=== PATIENT | male | born 1960 | race Caucasian/White ===

== ENCOUNTER 2022-09-29 13:52 | Outpatient (AMB) | payer OTHER, SELFPAY ==
--- NOTE | 2022-09-29 13:57 | MHC.PC.OV ---
Vital Signs 09/29/22 14:00 Height 5 ft 9 in Weight 206 lb 2 oz BMI 30.4 BP 122/72 Blood Pressure Location Lt brachial Position Sitting Pulse 75 Pulse Source Pulse Oximeter Pulse Oximetry (%) 98 Oxygen Delivery Method Room Air Intake Visit Reasons: Requesting PE Intake Note: Patient is a new patient here to establish care for physical. Transferring care from Dr Escobedo. Medical records have not been requested and have received. Registered Sales Assistant Required: No Gray Tender: Not Required per policy Accompanied by: Self / Same As Patient Allergies No Known Allergies Allergy (Verified 09/29/22 14:04) Tobacco use date assessed: 09/29/22 Dental Screening Dental Screen Date: 09/29/22 Did you have a dental visit in the last 12 months?: Yes Did you have a dental problem in the last 6 months where you did not have access to dental care?: No Was dental information given to patient?: Patient has dentist HPI HPI Comments History of Present Illness Details 62-year-old male new patient denies significant medical or surgical history. Previous patient of last seen 6 years ago. Patient denies any acute concerns. Denies chest pain, palpitations, shortness of breath and syncope. Colonscopy: 2014; showed hyperplastic polyp recommended follow-up in 10 years eye exam: recommended 3 couple years patient advised to call and make an appointment for an eye exam with early interventionist. Patient up-to-date on recommended immunizations except Td due, TD given in office today. [facility] Medical History (Updated 09/29/22 @ 14:11 by ZACHERY Levy) Dislocation of right shoulder joint Seasonal allergies Surgical History No pertinent past surgical history Family History (Updated 09/29/22 @ 14:13 by ZACHERY Levy) Mother Parkinson disease Father Heart disease Pacemaker Skin cancer Brother Type 1 diabetes Social History (Updated 09/29/22 @ 14:13 by ZACHERY Levy) Housing: House Alcohol intake: current Alcohol intake frequency: a few times a week Alcohol type: beer and wine Patient Tobacco Use Status: Never used Tobacco e-Cigarette/Vaping Use: Never Used Second Hand Smoke Exposure: No service: No Current occupational status: retired Cognitive needs: No Hearing needs: No Vision needs: Yes (reading glasses) Questionnaire PHQ-9 Over the last 2 weeks, how often have you been bothered by any of the following problems? 1. Little interest or pleasure in doing things: not at all 2. Feeling down, depressed, or hopeless: not at all 3. Trouble falling or staying asleep, or sleeping too much: not at all 4. Feeling tired or having little energy: not at all 5. Poor appetite or overeating: not at all 6. Feeling bad about yourself - or that you are a failure or have let yourself or your family down: not at all 7. Trouble concentrating on things, such as reading the newspaper or watching television: not at all 8. Moving or speaking so slowly that other people could have noticed. Or the opposite - being so fidgety or restless that you have been moving around a lot more than usual: not at all 9. Thoughts that you would be better off or of hurting yourself in some way: not at all Total score: 0 Depression Screening Interpretation: Negative 54637 - PHQ-9 Billing: Yes Source: Developed by Drs. Andrea Cordoba, Saida Dillon, Chalino Pickering and colleagues, with an educational halle from [employer]. Thrive Questionnaire Date Thrive assessed: 09/29/22 I am a: Patient What is your living situation today?: I have a steady place to live Within the past 12 months, did the food you bought not last and you didn't have the money to get more?: Never true Within the past 12 months, did you worry whether your food would run out before you got money to buy more?: Never true Do you have trouble paying for medicines?: No Do you have trouble getting transportation to medical appointments?: No Do you have trouble paying your heating and electricity bill?: No Do you have trouble taking care of your child, family member or friend?: No Do you have trouble with day-to-day activities such as bathing, preparing meals, shopping, managing finances, etc.?: No Are you currently unemployed and looking for a job?: No Are you interested in more education?: No Currently or been in a relationship where the following occur: no concerns reported AUDIT C Alcohol Use Questionnaire (AUDIT-C) 1. How often do you have a drink containing alcohol?: 2-3 times a week 2. How many drinks containing alcohol do you have on a typical day when you are drinking?: 1 or 2 Total Score: 3 MIGUEL A-7 AMB Questionnaire MIGUEL A-7 Date MIGUEL A - 7 assessed: 09/29/22 Feeling nervous, anxious, or on edge: 0 = Not at all Not being able to stop or control worryin = Not at all Worrying too much about different things: 0 = Not at all Trouble relaxin = Not at all Being so restless that it is hard to sit still: 0 = Not at all Becoming easily annoyed or irritable: 0 = Not at all Feeling afraid as if something awful might happen: 0 = Not at all Total MIGUEL A-7 score (0-4 normal; 5-9 mild; 10-14 moderate; 15-21 severe): 0 Source: Developed by Drs. Andrea Cordoba, Saida Dillon, Chalino Pickering and colleagues, with an educational halle from [employer]. MIGUEL A-7 Assessment Billing MIGUEL A-7 Assessment Tool: MIGUEL A-7 Assessment [id number] Review of Systems Const Denies chills, Denies fatigue, Denies fever(s) and Denies poor appetite Eyes Denies no additional complaints ENT Reports Normal hearing present Card Denies chest pain, Denies syncope, Denies rapid heart rate and Denies dyspnea Resp Denies cough and Denies dyspnea GI Denies change in stool character, Denies constipation, Denies diarrhea, Denies nausea and Denies vomiting Denies dysuria, Denies urinary frequency and Denies urinary urgency Neuro Reports Normal hearing present, Denies confusion and Denies syncope Psych Denies confusion Endo Denies fatigue Physical exam (Primary Care) Vital Signs: Last Vital Signs Pulse 75 09/29/22 14:00 BP 122/72 09/29/22 14:00 Pulse Ox 98 09/29/22 14:00 Oxygen Delivery Method Room Air 09/29/22 14:00 BMI result Body Mass Index 30.4 Tobacco/Smoking Status: Tobacco use Status Tobacco use date assessed 09/29/22 09/29/22 14:05 Patient Tobacco Use Status Never used Tobacco 09/29/22 14:13 e-Cigarette/Vaping Use Never Used 09/29/22 14:13 PHQ-9: PHQ-9 Score PHQ-9: Total score 0 09/29/22 15:45 Depression Screening Interpretation: Negative Thrive Assessment: Date of Thrive Assessment Date Thrive assessed 09/29/22 09/29/22 13:59 Currently or been in a relationship where the following occur: no concerns reported Const General: No confusion Orientation/consciousness: No confusion HENMT Head: Yes normocephalic and Yes atraumatic Ears: external ears normal and TM's normal bilaterally General nose exam: Normal external nose present and Normal nasal mucous membranes and turbinates present Face and sinus: Yes normal facial exam and Yes sinuses nontender Mouth: moist mucous membranes Throat: Yes tonsils normal Eyes Conjunctivae: conjunctivae normal Sclerae: sclerae normal Pupils: Equal, round and reactive pupils present and Pupils normal by confrontation EOM: EOMs intact bilaterally Direct Ophthalmoscopy: normal light reflex Neck Neck: Yes no lymphadenopathy and Yes supple Thyroid: Thyroid normal Chest Chest palpation & inspection: normal inspection of the chest Resp Effort & Inspection: normal respiratory effort Auscultation: clear to auscultation bilaterally, no crackles, no rhonchi and no wheezes Cardio Rate: regular rate Rhythm: regular rhythm Peripheral pulses: radial pulses present and dorsalis pedis present GI Inspection: Yes normal to inspection Palpation (GI): Soft to palpation, nontender and No hepatosplenomegaly present Auscultation: normoactive bowel sounds Skin General skin exam: no rashes or lesions noted Neuro General: No confusion Cranial nerves: Yes Equal, round and reactive pupils present and Yes Normal hearing present Cognition (Neuro): normal cognition Gait exam (Neuro): Normal gait present Motor exam (neuro): 5/5 motor strength present throughout Deep tendon reflexes (DTR's): Right brachioradialis reflex intensity grade: 2+, Left brachioradialis reflex intensity grade: 2+, Right patellar reflex intensity grade: 2+ and Left patellar reflex intensity grade: 2+ Extrem General: No edema Immunizations tetanus-diphtheria toxoids-Td Performing Provider: ZACHERY Levy Administered by: SHERRY Cramer on 09/29/22 14:22 Dose Route Admin Location Lot Number Expiration Date NDC [employer] Attendant 0.5 mL IM Left Deltoid [id number] 07/05/23 [address]-2 [employer] VIS Given Date VIS Provided VIS Publication Date 09/29/22 Single Vaccine 20 Eligibility Eligibility Date Funding Source Not [facility] Eligible 09/29/22 State funds Assessment and Plan Assessment & Plan (1) Physical exam, annual: Code(s): Z00.00 - Encounter for general adult medical examination without abnormal findings Plan: Follow-up in 1 year for annual exam. Fasting blood work ordered. Plan Follow-up in 1 year. Orders: Orders Comprehensive [place]. Panel Fast Today Z13.1 - Encounter for screening for diabetes mellitus Lipid Panel Today Z13.220 - Encounter for screening for lipoid disorders PSA,Total (Free>4and<10) Today Z12.5 - Encounter for screening for malignant neoplasm of prostate TSH reflex Free T4 Today Z13.29 - Encounter for screening for other suspected endocrine disorder Complete Blood Count Auto Diff Today Z13.0 - Encounter for screening for diseases of the blood and blood-forming organs and certain disorders involving the immune mechanism Td State Immunization Today Z23 - Encounter for immunization Coding Level of Care Code New Pt Prev Care 40-64y(33923) Diagnoses Physical exam, annual Z00.00 Additional Codes MIGUEL A-7 Assessment Billing - MIGUEL A-7 Assessment Tool: MIGUEL A-7 Assessment 17046 ([id number])
[2022-09-29 14:00] VITALS: BP 122/72; PULSE 75; O2SAT 98; BMI 30.4
== END 2022-09-29 14:34 | disposition home or self-care (01) ==
PROVIDERS: PCP Internal Medicine; Visit Provider Nurse Practitioner Family
DX: Z23 Encounter for immunization (principal); Z00.00 Encounter for general adult medical examination without abnormal findings
CPT/HCPCS: 90471; 90714; 99386

== ENCOUNTER 2023-10-15 12:24 | Outpatient (AMB) | payer OTHER, SELFPAY ==
[2023-10-15 12:32] VITALS: BP 158/90; PULSE 69; O2SAT 97; BMI 31.3
--- NOTE | 2023-10-15 12:32 | A.OFFPC_ITS ---
Vital Signs 10/15/23 12:32 Height 5 ft 9 in Weight 212 lb 0.4 oz BMI 31.3 BP 158/90 H Blood Pressure Location Lt brachial Position Sitting Pulse 69 Pulse Source Pulse Oximeter Pulse Oximetry (%) 97 Oxygen Delivery Method Room Air Intake Visit Reasons: PE Poured Pipe Maker Required: No Allergies No Known Allergies Allergy (Verified 10/15/23 12:32) Medication List - Last Reconciled 10/15/23 by Carolina Escobedo MD ibuprofen 400 mg PO Q8H multivitamin 1 tab PO DAILY Tobacco use date assessed: 10/15/23 Dental Screening Dental Screen Date: 10/15/23 Did you have a dental visit in the last 12 months?: Yes Did you have a dental problem in the last 6 months where you did not have access to dental care?: No Was dental information given to patient?: Patient has dentist HPI PE HPI Details 63-year-old obese male Coming in for phy sical exam. [facility] Medical History (Updated 10/15/23 @ 12:50 by Carolina Escobedo MD) Shoulder dislocation Dislocation of right shoulder joint Seasonal allergies Surgical History No pertinent past surgical history Family History (Updated 09/29/22 @ 14:13 by ZACHERY Levy) Mother Parkinson disease Father Heart disease Pacemaker Skin cancer Brother Type 1 diabetes Social History (Updated 10/15/23 @ 12:51 by Carolina Escobedo MD) Housing: House Alcohol intake: current Alcohol intake frequency: a few times a week Alcohol type: beer and wine Comment: 2 days weekend 2 drinks Patient Tobacco Use Status: Never used Tobacco e-Cigarette/Vaping Use: Never Used Second Hand Smoke Exposure: No service: No Current occupational status: retired Cognitive needs: No Hearing needs: No Vision needs: Yes (reading glasses) Questionnaire PHQ-9 Over the last 2 weeks, how often have you been bothered by any of the following problems? 1. Little interest or pleasure in doing things: not at all 2. Feeling down, depressed, or hopeless: not at all 3. Trouble falling or staying asleep, or sleeping too much: not at all 4. Feeling tired or having little energy: not at all 5. Poor appetite or overeating: not at all 6. Feeling bad about yourself - or that you are a failure or have let yourself or your family down: not at all 7. Trouble concentrating on things, such as reading the newspaper or watching television: not at all 8. Moving or speaking so slowly that other people could have noticed. Or the opposite - being so fidgety or restless that you have been moving around a lot more than usual: not at all 9. Thoughts that you would be better off or of hurting yourself in some way: not at all Total score: 0 Depression Screening Interpretation: Negative Depression Screening Done: Yes 96713 - PHQ-9 Billing: Yes Source: Developed by Drs. Andrea Cordoba, Saida Dillon, Chalino Pickering and colleagues, with an educational halle from [employer]. Thrive Questionnaire Date Thrive assessed: 10/15/23 I am a: Patient What is your living situation today?: I have a steady place to live Within the past 12 months, did the food you bought not last and you didn't have the money to get more?: Never true Within the past 12 months, did you worry whether your food would run out before you got money to buy more?: Never true Do you have trouble paying for medicines?: No Do you have trouble getting transportation to medical appointments?: No Do you have trouble paying your heating and electricity bill?: No Do you have trouble taking care of your child, family member or friend?: No Do you have trouble with day-to-day activities such as bathing, preparing meals, shopping, managing finances, etc.?: No Are you currently unemployed and looking for a job?: No Are you interested in more education?: No Please select the resources that you would like help with: None Currently or been in a relationship where the following occur: No concerns reported THRIVE Score: 0 AUDIT C Alcohol Use Questionnaire (AUDIT-C) 1. How often do you have a drink containing alcohol?: 2-3 times a week 2. How many drinks containing alcohol do you have on a typical day when you are drinking?: 1 or 2 3. How often do you have six or more drinks on one occasion?: Never Total Score: 3 MIGUEL A-7 AMB Questionnaire MIGUEL A-7 Date MIGUEL A - 7 assessed: 10/15/23 Feeling nervous, anxious, or on edge: 0 = Not at all Not being able to stop or control worryin = Not at all Worrying too much about different things: 0 = Not at all Trouble relaxin = Not at all Being so restless that it is hard to sit still: 0 = Not at all Becoming easily annoyed or irritable: 0 = Not at all Feeling afraid as if something awful might happen: 0 = Not at all Total MIGUEL A-7 score (0-4 normal; 5-9 mild; 10-14 moderate; 15-21 severe): 0 Source: Developed by Drs. Andrea Cordoba, Saida Dillon, Chalino Pickering and colleagues, with an educational halle from [employer]. MIGUEL A-7 Assessment Billing MIGUEL A-7 Assessment Tool: MIGUEL A-7 Assessment 54646 Review of Systems Const Denies poor appetite and Denies weakness Eyes Denies no additional complaints ENT Reports Normal hearing present, Denies dizziness, Denies nasal congestion, Denies tinnitus and Denies sore throat Card Denies chest pain, Denies syncope, Denies rapid heart rate and Denies dyspnea Resp Denies cough and Denies dyspnea GI Denies change in stool character, Reports constipation, Denies diarrhea, Denies nausea and Denies vomiting Denies dysuria and Denies urinary frequency Neuro Reports Normal hearing present, Denies confusion, Denies dizziness, Denies syncope and Denies weakness Psych Denies confusion Physical exam (Primary Care) Vital Signs: Oxygen Delivery Method Room Air 10/15/23 12:32 BMI result Body Mass Index 31.3 Tobacco/Smoking Status: Tobacco use Status Tobacco use date assessed 09/29/22 09/29/22 14:05 Patient Tobacco Use Status Never used Tobacco 09/29/22 14:13 e-Cigarette/Vaping Use Never Used 09/29/22 14:13 Depression Screening Interpretation: Negative Thrive Assessment: Date of Thrive Assessment Date Thrive assessed 09/29/22 09/29/22 13:59 Currently or been in a relationship where the following occur: No concerns reported Const General: No confusion Orientation/consciousness: No confusion HENMT Head: Yes normocephalic Ears: external ears normal and TM's normal bilaterally Face and sinus: Yes normal facial exam Mouth: moist mucous membranes Throat: Yes tonsils normal Eyes Conjunctivae: conjunctivae normal Pupils: Equal, round and reactive pupils present and Pupil accommodation reflex normal Direct Ophthalmoscopy: normal light reflex Neck Neck: No lymphadenopathy Thyroid: Thyroid normal Chest Chest palpation & inspection: normal inspection of the chest Resp Effort & Inspection: normal respiratory effort and no audible wheezes Auscultation: clear to auscultation bilaterally, no crackles, no wheezes and lung sounds not diminished Cardio Rate: regular rate Rhythm: regular rhythm Peripheral pulses: radial pulses present and dorsalis pedis present GI Other: Declined rectal Palpation (GI): no masses Auscultation: normal bowel sounds and normoactive bowel sounds Rectal Exam - Male: Yes deferred Male General Exam: Yes normal external exam Skin General skin exam: no rashes or lesions noted Rashes: no rashes Neuro General: No confusion Cranial nerves: Yes Equal, round and reactive pupils present and Yes Normal hearing present Cognition (Neuro): normal cognition Gait exam (Neuro): Normal gait present Motor exam (neuro): 5/5 motor strength present throughout Deep tendon reflexes (DTR's): Right brachioradialis reflex intensity grade: 2+, Left brachioradialis reflex intensity grade: 2+, Right patellar reflex intensity grade: 2+ and Left patellar reflex intensity grade: 2+ Extrem General: No edema Assessment and Plan Assessment & Plan (1) Annual physical exam: Code(s): Z00.00 - Encounter for general adult medical examination without abnormal findings Plan: Patient is advised to eat healthy, keep well hydrated, keep active and have adequate sleep. (2) Obesity (BMI 30-39.9): Code(s): E66.9 - Obesity, unspecified Plan: Diet and exercise (3) Gallbladder polyp: Comment: Two thousand fifteen 5 mm Code(s): K82.4 - Cholesterolosis of gallbladder (4) Blood pressure elevated without history of HTN: Code(s): R03.0 - Elevated blood-pressure reading, without diagnosis of hypertension Plan: monitor the BP and record. Orders: Orders US abdomen complete Today K82.4 - Cholesterolosis of gallbladder, R79.89 - Other specified abnormal findings of blood chemistry Prostate Specific Antigen Scr Today R03.0 - Elevated blood-pressure reading, without diagnosis of hypertension UA w Microscopic Today R03.0 - Elevated blood-pressure reading, without diagnosis of hypertension Complete Blood Count Auto Diff Today R03.0 - Elevated blood-pressure reading, without diagnosis of hypertension Comprehensive Met. Panel Today R03.0 - Elevated blood-pressure reading, without diagnosis of hypertension Free T4 (Free Thyroxine) Today R03.0 - Elevated blood-pressure reading, without diagnosis of hypertension Vitamin B12 and Folate Today R03.0 - Elevated blood-pressure reading, without diagnosis of hypertension Thyroid Stimulating Hormone Today R03.0 - Elevated blood-pressure reading, without diagnosis of hypertension Lipid Panel Today E78.00 - Pure hypercholesterolemia, unspecified, R03.0 - Elevated blood-pressure reading, without diagnosis of hypertension Coding Level of Care Code Est Pt Prev Care 40-64y(59750) Diagnoses Annual physical exam Z00.00 Obesity (BMI 30-39.9) E66.9 Gallbladder polyp K82.4 Blood pressure elevated without history of HTN R03.0 Additional Codes MIGUEL A-7 Assessment Billing - MIGUEL A-7 Assessment Tool: MIGUEL A-7 Assessment [id number] ([id number])
== END 2023-10-15 13:06 | disposition home or self-care (01) ==
PROVIDERS: PCP Internal Medicine; Visit Provider Internal Medicine
DX: Z00.00 Encounter for general adult medical examination without abnormal findings (principal); E66.9 Obesity, unspecified; K82.4 Cholesterolosis of gallbladder; Z68.31 Body mass index [BMI] 31.0-31.9, adult; R03.0 Elevated blood-pressure reading, without diagnosis of hypertension
CPT/HCPCS: 99396

== ENCOUNTER 2023-10-26 08:00 | Outpatient (REF) | payer OTHER, SELFPAY ==
[2023-10-26 10:26] LABS: MANUAL DIFF FLAG NO
[2023-10-26 10:41] LABS: Basophils Percent Auto 0.6 % (0-2); Eosinophils Absolute Auto 0.1 X10*3/uL (0.0-0.4); Eosinophils Percent Auto 2.6 % (0-4); Hematocrit 46.4 % (42.0-52.0); Hemoglobin 16.1 g/dl (14.0-18.0); Imm Gran Abs Auto 0.01 X10*3/uL (0.00-0.03); Imm Gran Pct Auto 0.2 % (0.0-0.4); Lymphocytes Absolute Auto 1.9 X10*3/uL (1.2-4.9); Lymphocytes Percent Auto 40.4 % (20-40); Mean Corpuscular HGB Conc 34.7 g/dl (31.0-36.0); Mean Corpuscular Hemoglobin 31.5 pg (27.0-33.0); Mean Corpuscular Volume 90.8 fL (80.0-98.0); Mean Platelet Volume 9.8 fL (9.4-12.4); Monocytes Absolute Auto 0.5 X10*3/uL (0.1-1.2); Neutrophils Absolute Auto 2.1 x10*3/uL (2.0-8.3); Neutrophils Percent Auto 45.2 % (45-73); Platelet Count 168 X10*3/uL (160-400); Red Blood Count 5.11 X10*6/uL (4.60-5.80); Red Cell Distribution Width 12.1 % (11.0-16.0); White Blood Count 4.6 X10*3/uL (4.8-10.8)
[2023-10-26 10:53] LABS: Appearance Urine Turbid; Color Urine Yellow; Glucose Urine UA Negative (Negative); Leukocyte Esterase Urine Negative (Negative); Nitrite Urine Negative (Negative); PH 5.5 (5.0-9.0); Specific Gravity - Urine 1.025 (1.005-1.025); Urine Blood Negative (Negative); Urine Ketones Negative (Negative); Urine Protein Negative (Neg-Trace)
[2023-10-26 10:58] LABS: Bacteria Urine None Seen (None Seen); Hyaline Casts Urine 0-2 /LPF (0-2); RBC Urine 0-2 /HPF (0-2); Squamous Epithelial Cell Urine 0-2 /HPF (0-2); WBC Urine 0-5 /HPF (0-5)
[2023-10-26 11:03] LABS: Alanine Aminotransferase 48 U/L (0-40); Albumin Level 4.4 g/dL (3.5-5.0); Alkaline Phosphatase 59 U/L (39-117); Anion Gap 8 (12-20); Aspartate Amino Transferase 30 U/L (5-37); Bilirubin Total 0.8 mg/dL (0.0-1.0); Blood Urea Nitrogen 18 mg/dL (9-16); Calcium 9.2 mg/dL (8.4-10.2); Carbon Dioxide 30 mmol/L (22-29); Chloride 107 mmol/L (96-108); Cholesterol 186 mg/dL (<200); Estimated Glomerular Filt Rate > 60; Glucose Random 102 mg/dL (60-115); HDL Cholesterol 52 mg/dL (>40); LDL Cholesterol Calculated 116 mg/dL (<100); Potassium 4.2 mmol/L (3.3-5.1); Sodium 141 mmol/L (135-145); Total Protein 7.1 g/dL (6.5-8.0); Triglycerides 90 mg/dL (<150)
[2023-10-26 11:22] LABS: Folate 9.5 ng/mL (> or = 4.0); Prostate Specific Antigen Scr 0.98 ng/mL (<0.05-4.0); Vitamin B12 621 pg/mL (200-900)
[2023-10-26 11:26] LABS: Free T4 (Free Thyroxine) 0.93 ng/dL (0.71-1.85); Thyroid Stimulating Hormone 1.32 uIU/mL (0.32-4.0)
== END 2023-10-26 08:01 | disposition home or self-care (01) ==
LOC: HO.HMGCLDS 08:00
PROVIDERS: PCP Internal Medicine; Visit Provider Internal Medicine
DX: R03.0 Elevated blood-pressure reading, without diagnosis of hypertension (principal); E78.00 Pure hypercholesterolemia, unspecified
CPT/HCPCS: 36415; 80053; 80061; 81001; 82607; 82746; 84153; 84439; 84443; 85025

== ENCOUNTER 2023-10-28 07:55 | Outpatient (REF) | payer OTHER, SELFPAY ==
--- NOTE | ~2023-10-28 | US_ITS ---
EXAMINATION: US ABDOMEN COMPLETE CLINICAL INFORMATION: Abnormal labs. COMPARISON: 06/11/2014 ultrasound abdomen. TECHNIQUE: Real-time imaging of the abdominal viscera. Limited visualization due to bowel gas. FINDINGS: PANCREAS: Limited visualization of pancreatic tail and head. Imaged portion of pancreatic body is unremarkable. ABDOMINAL AORTA: Limited visualization. INFERIOR VENA CAVA: Visualized portions are normal. LIVER: Increased hepatic parenchymal heterogeneity and echogenicity could be associated with hepatocellular disease/hepatic steatosis and substantially limits visualization. There is poor visualization of the inferior aspects of the bilateral hepatic lobes. Correlation with liver function tests and clinical exam recommended to determine further management. GALLBLADDER: No gallbladder wall thickening. Multiple gallstones. Previously identified 5 mm gallbladder polyp is not clearly visualized, however, visualization of the gallbladder is limited due to suboptimal distention, bowel gas and multiple gallstones. COMMON BILE DUCT: Normal in caliber measuring 0.3 cm in diameter. RIGHT KIDNEY: No hydronephrosis. No renal calculi. Limited visualization. The kidney measures 10.9 cm in maximum dimension. LEFT KIDNEY: No hydronephrosis. No renal calculi. Limited visualization. The kidney measures 12.4 cm in maximum dimension. SPLEEN: Normal. The spleen measures 11.3 cm in maximum dimension. FREE FLUID: None. US/US abdomen complete IMPRESSION: 1. Increased hepatic parenchymal heterogeneity and echogenicity could be associated with hepatocellular disease/hepatic steatosis and substantially limits visualization. There is particularly poor visualization of the inferior aspects of the bilateral hepatic lobes. Correlation with liver function tests and clinical exam recommended to determine further management. 2. Multiple gallstones. Previously identified 5 mm gallbladder polyp is not clearly visualized, however, visualization of the gallbladder is limited due to suboptimal distention, bowel gas and multiple gallstones. Electronically signed by: Marilu Martinez MD 11/03/2023 03:49 PM EDT
== END 2023-10-28 07:56 | disposition home or self-care (01) ==
LOC: HO.US 07:55
PROVIDERS: PCP Internal Medicine; Visit Provider Internal Medicine
DX: R79.89 Other specified abnormal findings of blood chemistry (principal); K82.4 Cholesterolosis of gallbladder
CPT/HCPCS: 76700

== ENCOUNTER 2024-02-03 10:37 | Outpatient (AMB) | payer OTHER, SELFPAY ==
[2024-02-03 10:54] VITALS: BP 134/82; PULSE 77; O2SAT 98; BMI 30.4
--- NOTE | 2024-02-03 10:54 | MHC.PC.OV ---
Vital Signs 02/03/24 10:54 Height 5 ft 9 in Weight 206 lb BMI 30.4 BP 134/82 Blood Pressure Location Lt brachial Position Sitting Pulse 77 Pulse Source Pulse Oximeter Pulse Oximetry (%) 98 Oxygen Delivery Method Room Air Intake Visit Reasons: Blood pressure Allergies No Known Allergies Allergy (Verified 02/03/24 10:55) Tobacco use date assessed: 10/15/23 Dental Screening Dental Screen Date: 10/15/23 HPI Blood pressure HPI Details The patient is a 63-year-old male presenting with a follow-up on elevated blood pressure and abnormal ultrasound findings. The patient was last evaluated on October 15, 2023, during which he exhibited elevated blood pressure. Recent history includes a 6-pound weight loss. Upon an ultrasound conducted in September 2023, hepatic steatosis was confirmed, multiple gallstones were visible, and the previously noted 5-millimeter gallbladder polyp was not visualized due to suboptimal gallbladder distension. Last blood work in September 2023 showed no anemia, mild leukopenia, and mildly elevated creatinine levels of 1.2. The fasting blood sugar was recorded at 102, with mild elevation in liver function tests (48). The LDL cholesterol noted at 116 is within acceptable limits, while all other blood parameters, including prostate-specific antigen, folic acid, and thyroid function, remain within normal range. Past medical history includes hepatic steatosis, cholelithiasis, and a diagnosis of a gallbladder polyp from 2014. The patient has been advised to monitor the gallstones as they may cause intermittent pain, and to maintain a low-fat diet to prevent aggravation of the gallbladder condition. [facility] Medical History (Updated 02/03/24 @ 11:35 by Carolina Escobedo MD) Shoulder dislocation Dislocation of right shoulder joint Seasonal allergies Surgical History No pertinent past surgical history Family History (Updated 09/29/22 @ 14:13 by ZACHERY Levy) Mother Parkinson disease Father Heart disease Pacemaker Skin cancer Brother Type 1 diabetes Social History (Updated 10/15/23 @ 12:51 by Carolina Escobedo MD) Housing: House Alcohol intake: current Alcohol intake frequency: a few times a week Alcohol type: beer and wine Comment: 2 days weekend 2 drinks Patient Tobacco Use Status: Never used Tobacco Tobacco use type: Cigarette e-Cigarette/Vaping Use: Never Used Second Hand Smoke Exposure: No service: No Current occupational status: retired Cognitive needs: No Hearing needs: No Vision needs: Yes (reading glasses) Questionnaire PHQ-9 Over the last 2 weeks, how often have you been bothered by any of the following problems? 1. Little interest or pleasure in doing things: not at all 2. Feeling down, depressed, or hopeless: not at all 3. Trouble falling or staying asleep, or sleeping too much: not at all 4. Feeling tired or having little energy: not at all 5. Poor appetite or overeating: not at all 6. Feeling bad about yourself - or that you are a failure or have let yourself or your family down: not at all 7. Trouble concentrating on things, such as reading the newspaper or watching television: not at all 8. Moving or speaking so slowly that other people could have noticed. Or the opposite - being so fidgety or restless that you have been moving around a lot more than usual: not at all 9. Thoughts that you would be better off or of hurting yourself in some way: not at all Total score: 0 Depression Screening Interpretation: Negative Depression Screening Done: Yes 34178 - PHQ-9 Billing: Yes Source: Developed by Drs. Andrea Cordoba, Chalino Sheppard and colleagues, with an educational halle from [employer]. Thrive Questionnaire Date Thrive assessed: 10/15/23 AUDIT C Alcohol Use Questionnaire (AUDIT-C) 2. How many drinks containing alcohol do you have on a typical day when you are drinking?: 1 or 2 3. How often do you have six or more drinks on one occasion?: Never Total Score: 0 MIGUEL A-7 AMB Questionnaire MIGUEL A-7 Date MIGUEL A - 7 assessed: 10/15/23 Source: Developed by Drs. Andrea Cordoba, Chalino Sheppard and colleagues, with an educational halle from [employer]. Physical exam (Primary Care) Vital Signs: Last Vital Signs Pulse 77 02/03/24 10:54 BP 134/82 02/03/24 10:54 Pulse Ox 98 02/03/24 10:54 Oxygen Delivery Method Room Air 02/03/24 10:54 BMI result Body Mass Index 30.4 Tobacco/Smoking Status: Tobacco use Status Tobacco use date assessed 10/15/23 02/03/24 11:00 Patient Tobacco Use Status Never used Tobacco 02/03/24 11:00 Tobacco use type Cigarette 02/03/24 11:00 e-Cigarette/Vaping Use Never Used 02/03/24 11:00 PHQ-9: PHQ-9 Score PHQ-9: Total score 0 02/03/24 11:19 Depression Screening Interpretation: Negative Thrive Assessment: Date of Thrive Assessment Date Thrive assessed 10/15/23 02/03/24 11:00 Const General: alert; No acute distress Eyes Conjunctivae: conjunctivae normal Resp Auscultation: clear to auscultation bilaterally Cardio Rate: regular rate Rhythm: regular rhythm GI Inspection: Yes normal to inspection Extrem General: Yes normal to inspection and No edema Office Procedures Flu Questionnaire Does the patient have a severe egg allergy?: No Does the patient have severe life threatening allergies?: No Does the patient have a fever or illness today?: No Has the patient ever had Guillain-Hoople Syndrome?: No Has the patient ever had any past reaction to a flu shot?: No Immunizations Fluarix Triv 8716-0918 (PF) 45 mcg (15 mcg x 3)/0.5 mL IM syringe Performing Provider: Carolina Escobedo MD [facility] Administered by: Joanie Mcdonough CMA on 02/03/24 11:35 Dose Route Admin Location Dispensed Lot Number Expiration Date NDC [employer] 0.5 mL IM Left Deltoid 0.5 mL [id number] 08/28/24 [id number] [employer] VIS Given Date VIS Provided VIS Publication Date 02/03/24 Single Vaccine 20 Eligibility Eligibility Date Funding Source Not [facility] Eligible 02/03/24 Private Coding Level of Care Code Est Pt Level 4 (98988) Complex EM visit Add On G2211 Diagnoses Calculus of gallbladder without cholecystitis without obstruction K80.20 Cholelithiasis location: gallbladder Cholecystitis presence: without cholecystitis Biliary obstruction: without biliary obstruction Blood pressure elevated without history of HTN R03.0 Gallbladder polyp K82.4 Hepatic steatosis K76.0 Obesity (BMI 30-39.9) E66.9 Impaired fasting blood sugar R73.01 Additional Codes PHQ-9 - 82244 - PHQ-9 Billing: Yes ([id number]) Assessment & Plan Assessment & Plan (1) Cholelithiasis: Comment: SEPTEMBER 2023Increased hepatic parenchymal heterogeneity and echogenicity could be associated with hepatocellular disease/hepatic steatosis and substantially limits visualization. There is particularly poor visualization of the inferior aspects of the bilateral hepatic lobes. Correlation with liver function tests and clinical exam recommended to determine further management. 2. Multiple gallstones. Previously identified 5 mm gallbladder polyp is not clearly visualized, however, visualization of the gallbladder is limited due to suboptimal distention, bowel gas and multiple gallstones. Code(s): K80.20 - Calculus of gallbladder without cholecystitis without obstruction Category: Medical Qualifiers: Cholelithiasis location: gallbladder Cholecystitis presence: without cholecystitis Biliary obstruction: without biliary obstruction Qualified Code(s): K80.20 - Calculus of gallbladder without cholecystitis without obstruction Plan: Low-fat diet and exercise (2) Blood pressure elevated without history of HTN: Code(s): R03.0 - Elevated blood-pressure reading, without diagnosis of hypertension Category: Medical Plan: Resolved (3) Gallbladder polyp: Comment: Two thousand fifteen 5 mm Code(s): K82.4 - Cholesterolosis of gallbladder Category: Medical Plan: Will continue on annual follow-up (4) Hepatic steatosis: Comment: SEPTEMBER 2023Increased hepatic parenchymal heterogeneity and echogenicity could be associated with hepatocellular disease/hepatic steatosis and substantially limits visualization. There is particularly poor visualization of the inferior aspects of the bilateral hepatic lobes. Correlation with liver function tests and clinical exam recommended to determine further management. 2. Multiple gallstones. Previously identified 5 mm gallbladder polyp is not clearly visualized, however, visualization of the gallbladder is limited due to suboptimal distention, bowel gas and multiple gallstones. Code(s): K76.0 - Fatty (change of) liver, not elsewhere classified Category: Medical Plan: Low-fat diet and exercise (5) Obesity (BMI 30-39.9): Code(s): E66.9 - Obesity, unspecified Category: Medical Plan: Continued loss of weight (6) Impaired fasting blood sugar: Code(s): R73.01 - Impaired fasting glucose Category: Medical Plan: Decrease the amount of carbohydrate intake, pasta, bread, rice and potatoes are all sugar and that is aside from all the sweet stuff, remember that fruits are good but they are Sweet also. Plan - Hepatic Steatosis: The patient is advised to focus on weight management and lifestyle modifications to reduce liver fat accumulation. Continued monitoring of liver function tests is recommended. - Gallbladder Polyp and Cholelithiasis: Since the gallbladder polyp was not currently visualized and numerous gallstones exist, the recommendation includes alertness to the occurrence of pain. If acute cholecystitis symptoms develop, surgical consultation for possible laparoscopic cholecystectomy might be necessary. Dietary management focusing on low-fat intake is urged. - Elevated Blood Pressure: Current blood pressure control is satisfactory. Continuous monitoring and lifestyle modifications such as diet and exercise are encouraged. - Mild Leukopenia: The mild leukopenia will be monitored without immediate further investigation unless significant changes in white blood cell count occur. - Elevated Liver Function Tests: Liver function will be monitored regularly, taking into account potential effects of hepatic steatosis and ongoing blood sugar and weight management. - Elevated Fasting Blood Sugar: The patient is instructed on dietary changes and increased physical activity to address mildly raised blood sugar levels to prevent progression to diabetes. Follow-up with hemoglobin A1c testing in six months to assess long-term glucose control. - Health Maintenance: Administration of the flu vaccine is confirmed. The patient is advised to receive the COVID vaccine from a pharmacy due to differing storage requirements. Reinforcement of regular exercise and balanced diet emphasized . Orders: Orders Hemoglobin A1c 6 Months R73.01 - Impaired fasting glucose Complete Blood Count Auto Diff 6 Months R73.01 - Impaired fasting glucose Lipid Panel 6 Months E78.00 - Pure hypercholesterolemia, unspecified, K80.20 - Calculus of gallbladder without cholecystitis without obstruction Free T4 (Free Thyroxine) 6 Months K80.20 - Calculus of gallbladder without cholecystitis without obstruction Prostate Specific Antigen Scr 6 Months K80.20 - Calculus of gallbladder without cholecystitis without obstruction Comprehensive Met. Panel 6 Months R73.01 - Impaired fasting glucose Thyroid Stimulating Hormone 6 Months K80.20 - Calculus of gallbladder without cholecystitis without obstruction Vitamin B12 and Folate 6 Months K80.20 - Calculus of gallbladder without cholecystitis without obstruction Hepatitis B,C Profile 6 Months K80.20 - Calculus of gallbladder without cholecystitis without obstruction, R79.89 - Other specified abnormal findings of blood chemistry
== END 2024-02-03 11:39 | disposition home or self-care (01) ==
PROVIDERS: PCP Internal Medicine; Visit Provider Internal Medicine
DX: K80.20 Calculus of gallbladder without cholecystitis without obstruction (principal); E66.9 Obesity, unspecified; Z68.30 Body mass index [BMI] 30.0-30.9, adult; R03.0 Elevated blood-pressure reading, without diagnosis of hypertension; K82.4 Cholesterolosis of gallbladder; K76.0 Fatty (change of) liver, not elsewhere classified; R73.01 Impaired fasting glucose; Z23 Encounter for immunization

== ENCOUNTER → 2024-02-03 10:37 | Outpatient (BNVA) | payer OTHER, SELFPAY | PROVIDERS: PCP Internal Medicine; Visit Provider Internal Medicine | DX: Z23 Encounter for immunization (principal); K80.20 Calculus of gallbladder without cholecystitis without obstruction; R03.0 Elevated blood-pressure reading, without diagnosis of hypertension; K76.0 Fatty (change of) liver, not elsewhere classified; R73.01 Impaired fasting glucose | CPT/HCPCS: 90471; 90656; 96127; 99212 ==

== ENCOUNTER 2024-10-18 08:00 | Outpatient (REF) | payer OTHER, SELFPAY ==
[2024-10-18 11:10] LABS: MANUAL DIFF FLAG NO
[2024-10-18 11:19] LABS: Hematocrit 46.8 % (42.0-52.0); Hemoglobin 16.1 g/dl (14.0-18.0); Imm Gran Abs Auto 0.01 X10*3/uL (0.00-0.03); Imm Gran Pct Auto 0.2 % (0.0-0.4); Lymphocytes Absolute Auto 2.0 X10*3/uL (1.2-4.9); Mean Corpuscular HGB Conc 34.4 g/dl (31.0-36.0); Mean Corpuscular Hemoglobin 31.0 pg (27.0-33.0); Mean Corpuscular Volume 90.0 fL (80.0-98.0); NRBC Abs Auto 0.000 X10*3/uL (0.0-0.012); NRBC Pct Auto 0.0 /100WBC (0.0-0.2); Platelet Count 178 X10*3/uL (160-400); Red Blood Count 5.20 X10*6/uL (4.60-5.80); White Blood Count 4.9 X10*3/uL (4.8-10.8)
[2024-10-18 11:48] LABS: Alanine Aminotransferase 75 U/L (0-40); Albumin Level 4.5 g/dL (3.5-5.0); Alkaline Phosphatase 63 U/L (39-117); Anion Gap 12 (12-20); Aspartate Amino Transferase 38 U/L (5-37); Blood Urea Nitrogen 18 mg/dL (9-16); Calcium 9.3 mg/dL (8.4-10.2); Carbon Dioxide 27 mmol/L (22-29); Chloride 106 mmol/L (96-108); Cholesterol 216 mg/dL (<200); Estimated Glomerular Filt Rate 58; HDL Cholesterol 51 mg/dL (>40); Potassium 4.1 mmol/L (3.3-5.1); Sodium 141 mmol/L (135-145); Total Protein 7.0 g/dL (6.5-8.0); Triglycerides 117 mg/dL (<150)
[2024-10-18 11:51] LABS: Free T4 (Free Thyroxine) 1.01 ng/dL (0.71-1.85); Thyroid Stimulating Hormone 1.89 uIU/mL (0.32-4.0)
[2024-10-18 11:52] LABS: Hemoglobin A1C 168.8491 umol/L; Total Hemoglobin (HGBA1C) 4411.6965 umol/L
[2024-10-18 12:11] LABS: Folate 8.5 ng/mL (> or = 4.0); Vitamin B12 471 pg/mL (200-900)
[2024-10-19 08:51] LABS: HBS Num1 0.00 mIU/mL (0-7.99); HBc Num1 0.13 S/CO (0.00-0.79); HBsAGNum1 0.38 S/CO (0.00-0.99); Hepatitis B Surface Antigen Negative (Negative); ~HepC Num1 0.12 S/CO (0.00-0.79); ~Hepatitis B Surface Antibody NONREACTIVE (Nonreactive); ~Hepatitis C Antibody Nonreactive (Nonreactive)
== END 2024-10-18 08:01 | disposition home or self-care (01) ==
LOC: HO.HMGCLDS 08:00
PROVIDERS: PCP Internal Medicine; Visit Provider Internal Medicine
DX: Z12.5 Encounter for screening for malignant neoplasm of prostate (principal); Z11.59 Encounter for screening for other viral diseases; K80.20 Calculus of gallbladder without cholecystitis without obstruction; R73.01 Impaired fasting glucose; E78.00 Pure hypercholesterolemia, unspecified; R79.89 Other specified abnormal findings of blood chemistry
CPT/HCPCS: 36415; 80053; 80061; 82607; 82746; 83036; 84153; 84439; 84443; 85025; 86704; 86706; 86803; 87340

== ENCOUNTER 2024-10-20 10:07 | Outpatient (AMB) | payer MEDICARE, SELFPAY ==
[2024-10-20 10:11] VITALS: BP 144/98; PULSE 82; TEMP 36.3; O2SAT 97; BMI 31.3
--- NOTE | 2024-10-20 10:11 | MHC.PC.OV ---
Vital Signs 10/20/24 10:11 10/20/24 10:38 Height 5 ft 9 in Weight 212 lb 4 oz BMI 31.3 BP 144/98 H 140/90 H Blood Pressure Location Lt brachial Lt brachial Position Sitting Sitting Pulse 82 Pulse Source Pulse Oximeter Temp 97.3 F Temp Source Temporal Artery Scan Pulse Oximetry (%) 97 Oxygen Delivery Method Room Air Intake Visit Reasons: Annual Exam Allergies No Known Allergies Allergy (Verified 10/20/24 10:14) Medication List - Last Reconciled 10/20/24 by Carolina Escobedo MD ibuprofen 400 mg PO Q8H multivitamin 1 tab PO DAILY Tobacco use date assessed: 10/20/24 Dental Screening Dental Screen Date: 10/20/24 Did you have a dental visit in the last 12 months?: Yes Did you have a dental problem in the last 6 months where you did not have access to dental care?: No Was dental information given to patient?: Patient has dentist ON [facility] OF [facility] Medical History Shoulder dislocation Dislocation of right shoulder joint Seasonal allergies Surgical History No pertinent past surgical history Family History (Updated 10/20/24 @ 10:42 by Carolina Escobedo MD) Mother Parkinson disease Father Heart disease Pacemaker Skin cancer Brother Type 1 diabetes Social History (Updated 10/20/24 @ 10:44 by Carolina Escobedo MD) Housing: House Alcohol intake: current Alcohol intake frequency: a few times a week Alcohol type: beer and wine Comment: 2-3 x a month 2 glasses Patient Tobacco Use Status: Never used Tobacco Tobacco use type: Cigarette e-Cigarette/Vaping Use: Never Used Second Hand Smoke Exposure: No service: No Current occupational status: retired Cognitive needs: No Hearing needs: No Vision needs: Yes (reading glasses) Questionnaire PHQ-9 Over the last 2 weeks, how often have you been bothered by any of the following problems? 1. Little interest or pleasure in doing things: not at all 2. Feeling down, depressed, or hopeless: not at all 3. Trouble falling or staying asleep, or sleeping too much: not at all 4. Feeling tired or having little energy: not at all 5. Poor appetite or overeating: not at all 6. Feeling bad about yourself - or that you are a failure or have let yourself or your family down: not at all 7. Trouble concentrating on things, such as reading the newspaper or watching television: not at all 8. Moving or speaking so slowly that other people could have noticed. Or the opposite - being so fidgety or restless that you have been moving around a lot more than usual: not at all 9. Thoughts that you would be better off or of hurting yourself in some way: not at all Total score: 0 Depression Screening Interpretation: Negative Depression Screening Done: Yes 50451 - PHQ-9 Billing: Yes Source: Developed by Drs. Andrea Cordoba, Saida Dillon, Chalino Pickering and colleagues, with an educational halle from [employer]. Thrive Questionnaire Date Thrive assessed: 10/20/24 I am a: Patient What is your living situation today?: I have a steady place to live Within the past 12 months, did the food you bought not last and you didn't have the money to get more?: Never true Within the past 12 months, did you worry whether your food would run out before you got money to buy more?: Never true Do you have trouble paying for medicines?: No Do you have trouble getting transportation to medical appointments?: No Do you have trouble paying your heating and electricity bill?: No Do you have trouble taking care of your child, family member or friend?: No Do you have trouble with day-to-day activities such as bathing, preparing meals, shopping, managing finances, etc.?: No Are you currently unemployed and looking for a job?: Yes Are you interested in more education?: No Please select the resources that you would like help with: None Currently or been in a relationship where the following occur: No concerns reported THRIVE Score: 0 AUDIT C Alcohol Use Questionnaire (AUDIT-C) 1. How often do you have a drink containing alcohol?: 2-4 times a month 2. How many drinks containing alcohol do you have on a typical day when you are drinking?: 1 or 2 3. How often do you have six or more drinks on one occasion?: Never Total Score: 2 MIGUEL A-7 AMB Questionnaire MIGUEL A-7 Date MIGUEL A - 7 assessed: 10/20/24 Feeling nervous, anxious, or on edge: 0 = Not at all Not being able to stop or control worryin = Not at all Worrying too much about different things: 0 = Not at all Trouble relaxin = Not at all Being so restless that it is hard to sit still: 0 = Not at all Becoming easily annoyed or irritable: 0 = Not at all Feeling afraid as if something awful might happen: 0 = Not at all Total MIGUEL A-7 score (0-4 normal; 5-9 mild; 10-14 moderate; 15-21 severe): 0 Source: Developed by Drs. Andrea Cordoba, Saida Dillon, Chalino Pickering and colleagues, with an educational halle from [employer]. MIGUEL A-7 Assessment Billing MIGUEL A-7 Assessment Tool: MIGUEL A-7 Assessment 74276 Review of Systems Const Denies poor appetite and Denies weakness Eyes Denies no additional complaints ENT Reports Normal hearing present, Denies dizziness, Denies nasal congestion, Denies tinnitus and Denies sore throat Card Denies chest pain, Denies syncope, Denies rapid heart rate and Denies dyspnea Resp Denies cough and Denies dyspnea GI Denies change in stool character, Reports constipation, Denies diarrhea, Denies nausea and Denies vomiting Denies dysuria and Denies urinary frequency Neuro Reports Normal hearing present, Denies confusion, Denies dizziness, Denies syncope and Denies weakness Psych Denies confusion Physical exam (Primary Care) Vital Signs: Last Vital Signs Temp 97.3 F 10/20/24 10:11 Pulse 82 10/20/24 10:11 BP 140/90 H 10/20/24 10:38 Pulse Ox 97 10/20/24 10:11 Oxygen Delivery Method Room Air 10/20/24 10:11 BMI result Body Mass Index 31.3 Tobacco/Smoking Status: Tobacco use Status Tobacco use date assessed 10/20/24 10/20/24 10:15 Patient Tobacco Use Status Never used Tobacco 10/20/24 10:44 Tobacco use type Cigarette 10/20/24 10:44 e-Cigarette/Vaping Use Never Used 10/20/24 10:44 PHQ-9: PHQ-9 Score PHQ-9: Total score 0 10/20/24 10:37 Depression Screening Interpretation: Negative Thrive Assessment: Date of Thrive Assessment Date Thrive assessed 10/20/24 10/20/24 10:15 Currently or been in a relationship where the following occur: No concerns reported Const General: No confusion Orientation/consciousness: No confusion HENMT Head: Yes normocephalic Ears: external ears normal and TM's normal bilaterally Face and sinus: Yes normal facial exam Mouth: moist mucous membranes Throat: Yes tonsils normal Eyes Conjunctivae: conjunctivae normal Pupils: Equal, round and reactive pupils present and Pupil accommodation reflex normal Direct Ophthalmoscopy: normal light reflex Neck Neck: No lymphadenopathy Thyroid: Thyroid normal Chest Chest palpation & inspection: normal inspection of the chest Resp Effort & Inspection: normal respiratory effort and no audible wheezes Auscultation: clear to auscultation bilaterally, no crackles, no wheezes and lung sounds not diminished Cardio Rate: regular rate Rhythm: regular rhythm Peripheral pulses: radial pulses present and dorsalis pedis present GI Palpation (GI): no masses Auscultation: normal bowel sounds and normoactive bowel sounds Rectal Exam - Male: Yes deferred Skin General skin exam: no rashes or lesions noted Rashes: no rashes Neuro General: No confusion Cranial nerves: Yes Equal, round and reactive pupils present and Yes Normal hearing present Cognition (Neuro): normal cognition Gait exam (Neuro): Normal gait present Motor exam (neuro): 5/5 motor strength present throughout Deep tendon reflexes (DTR's): Right brachioradialis reflex intensity grade: 2+, Left brachioradialis reflex intensity grade: 2+, Right patellar reflex intensity grade: 2+ and Left patellar reflex intensity grade: 2+ Extrem General: No edema Coding Level of Care Code Est Pt Prev Care 40-64y(47381) Diagnoses Annual physical exam Z00.00 Calculus of gallbladder without cholecystitis without obstruction K80.20 Biliary obstruction: without biliary obstruction Cholecystitis presence: without cholecystitis Cholelithiasis location: gallbladder Hepatic steatosis K76.0 Obesity (BMI 30-39.9) E66.9 Impaired fasting blood sugar R73.01 Colon cancer screening Z12.11 Hypercholesterolemia E78.00 Actinic keratosis L57.0 Additional Codes MIGUEL A-7 Assessment Billing - MIGUEL A-7 Assessment Tool: MIGUEL A-7 Assessment 77285 ([id number]) PHQ-9 - 38016 - PHQ-9 Billing: Yes ([id number]) Assessment & Plan Assessment & Plan (1) Annual physical exam: Code(s): Z00.00 - Encounter for general adult medical examination without abnormal findings Category: Medical Plan: Patient is advised to eat healthy, keep well hydrated, keep active and have adequate sleep. (2) Cholelithiasis: Comment: SEPTEMBER 2023Increased hepatic parenchymal heterogeneity and echogenicity could be associated with hepatocellular disease/hepatic steatosis and substantially limits visualization. There is particularly poor visualization of the inferior aspects of the bilateral hepatic lobes. Correlation with liver function tests and clinical exam recommended to determine further management. 2. Multiple gallstones. Previously identified 5 mm gallbladder polyp is not clearly visualized, however, visualization of the gallbladder is limited due to suboptimal distention, bowel gas and multiple gallstones. Code(s): K80.20 - Calculus of gallbladder without cholecystitis without obstruction Category: Medical Qualifiers: Biliary obstruction: without biliary obstruction Cholecystitis presence: without cholecystitis Cholelithiasis location: gallbladder Qualified Code(s): K80.20 - Calculus of gallbladder without cholecystitis without obstruction Plan: Low-fat diet (3) Hepatic steatosis: Comment: SEPTEMBER 2023Increased hepatic parenchymal heterogeneity and echogenicity could be associated with hepatocellular disease/hepatic steatosis and substantially limits visualization. There is particularly poor visualization of the inferior aspects of the bilateral hepatic lobes. Correlation with liver function tests and clinical exam recommended to determine further management. 2. Multiple gallstones. Previously identified 5 mm gallbladder polyp is not clearly visualized, however, visualization of the gallbladder is limited due to suboptimal distention, bowel gas and multiple gallstones. Code(s): K76.0 - Fatty (change of) liver, not elsewhere classified Category: Medical Plan: Low-fat diet and exercise (4) Obesity (BMI 30-39.9): Code(s): E66.9 - Obesity, unspecified Category: Medical Plan: Diet and exercise (5) Impaired fasting blood sugar: Code(s): R73.01 - Impaired fasting glucose Category: Medical Plan: Decrease the amount of carbohydrate intake, pasta, bread, rice and potatoes are all sugar and that is aside from all the sweet stuff, remember that fruits are good but they are Sweet also. (6) Colon cancer screening: Code(s): Z12.11 - Encounter for screening for malignant neoplasm of colon Category: Medical Plan: Patient is reminded about colon cancer screening (7) Hypercholesterolemia: Code(s): E78.00 - Pure hypercholesterolemia, unspecified Category: Medical Plan: Avoid fried foods, chicken skin, eggs, butter margarine, pastries and meat. Be it pork or beef they have a lot of cholesterol LDL goal of less than 130 and triglyceride of less than 150 (8) Actinic keratosis: Code(s): L57.0 - Actinic keratosis Category: Medical Plan History of Present Illness The patient is a 64-year-old male presenting for a wellness visit and management of chronic conditions. The patient has a history of obesity, with a recent weight gain of 6 pounds noted since the last visit. He has been advised to monitor his weight and engage in lifestyle modifications to address this issue. The patient has hepatic steatosis, which was identified through an ultrasound conducted in October 2023. This condition is associated with elevated liver function tests, and the patient has been advised to follow a low-fat diet to manage this condition. Cholelithiasis was also noted during the ultrasound, and the patient has been informed about the potential implications of this finding. The patient has impaired glucose tolerance, with a hemoglobin A1c of 5.7%, which is at the borderline for diabetes. He has been advised to monitor his diet, particularly his intake of carbohydrates, to prevent progression to diabetes. The patient has hypercholesterolemia, with an LDL cholesterol level of 142 mg/dL, which is above the desired goal of less than 130 mg/dL. He has been advised to follow a cholesterol-lowering diet and to monitor his cholesterol levels regularly. The patient has hypertension, with a blood pressure reading of 140/90 mmHg, which is considered borderline high. He has been advised to monitor his blood pressure regularly and to make lifestyle changes to manage this condition. The patient is due for a colon cancer screening, as his last colonoscopy was conducted in 2014. He has been reminded of the importance of this preventative measure and encouraged to schedule an appointment. Health Maintenance - Colon cancer screening recommended due to last test in 2014 - Low-fat diet advised for management of hepatic steatosis - Cholesterol-lowering diet recommended for hypercholesterolemia - Regular blood pressure monitoring advised for hypertension - Lifestyle modifications suggested for weight management Social History - Alcohol consumption: Two to three times a month, two glasses per occasion - Exercise: Patient acknowledges the need for increased physical activity - Diet: Low-fat and cholesterol-lowering diet recommended Review of Systems - Cardiovascular: Denies chest pain, orthopnea, or syncope - Respiratory: Denies dyspnea, cough, or wheezing - Gastrointestinal: Denies nausea, vomiting, or abdominal pain - Neurological: Denies dizziness, headaches, or balance issues - Genitourinary: Reports nocturia once per night, denies dysuria or hematuria Physical Exam General: Cooperative, healthy appearing, comfortable, no acute distress and well developed Orientation: Patient oriented x3 Limitations: No limitations Head: Normal to inspection Ears: Hearing grossly normal bilaterally Nose: Normal external nose present Face and sinus: Normal facial exam Eyes: Appearance normal, both eyes and all related structures Neck: Normal visual inspection and Yes full ROM Respiratory: Normal respiratory effort and able to speak in complete sentences. Clear to auscultation bilaterally Cardiovascular: Regular rate and rhythm. Normal S1 and S2 GI: Normal to inspection. Soft to palpation and nontender Skin: No rashes or lesions noted Neuro: Patient oriented x3 Extremities: Normal to inspection Results - Labs: Hemoglobin A1c at 5.7%, indicating impaired glucose tolerance - Labs: LDL cholesterol at 142 mg/dL, elevated - Imaging: Ultrasound showing hepatic steatosis and cholelithiasis Plan The patient is advised to follow a low-fat diet to manage hepatic steatosis and to monitor liver function tests regularly. For hypercholesterolemia, a cholesterol-lowering diet is recommended, with a target LDL cholesterol level of less than 130 mg/dL. The patient is encouraged to monitor blood pressure at home and to return for follow-up if readings consistently exceed 140/90 mmHg. For impaired glucose tolerance, dietary modifications focusing on reducing carbohydrate intake are advised to prevent progression to diabetes. The patient is reminded of the importance of regular physical activity to aid in weight management and overall health improvement. The patient is due for a colon cancer screening, and it is recommended to schedule this as soon as possible given the last screening was in 2014. Patient was informed and verbally consented to the use of an ambient scribe for clinic note documentation during this visit. Discussion Notes During the visit, I discussed the importance of managing hepatic steatosis through dietary changes and regular monitoring of liver function tests. We reviewed the patient's cholesterol levels and emphasized the need for a cholesterol-lowering diet to achieve target LDL levels. I advised the patient to monitor blood pressure at home and to seek follow-up care if readings are consistently high. We discussed the patient's impaired glucose tolerance and the importance of dietary modifications to prevent diabetes. The patient was reminded of the need for regular physical activity to support weight management and overall health. I emphasized the importance of scheduling a colon cancer screening, as the last screening was conducted in 2014. Patient Instructions - Follow a low-fat diet to manage liver health. - Adhere to a cholesterol-lowering diet and aim for LDL levels below 130 mg/dL. - Monitor blood pressure at home and seek follow-up if readings exceed 140/90 mmHg. - Reduce carbohydrate intake to manage glucose levels. - Engage in regular physical activity to support weight management. - Schedule a colon cancer screening as soon as possible. Orders: Orders Lipid Panel 6 Months E78.00 - Pure hypercholesterolemia, unspecified, L57.0 - Actinic keratosis Comprehensive Met. Panel 6 Months L57.0 - Actinic keratosis Hemoglobin A1c 6 Months L57.0 - Actinic keratosis Referrals Gastroenterology Referral Z12.11 - Encounter for screening for malignant neoplasm of colon Dermatology Referral L57.0 - Actinic keratosis
--- OUTSIDE RECORDS SUMMARY | 2024-10-20 10:11 | XMS_ITS | Patient Health Record ---
Author Organization [facility] Address [address] [place] [address] Care Team Providers Care [place] Actor Name Role Phone Po Carolina JIMENEZ Primary Care Provider Andrea Su [phone] Allergies Allergen (clinical drug ingredient) Drug/Non Drug Allergy documented on EMR Reaction Allergy Type Onset Date Status seasonal (uncoded) Unknown Allergy A ctive Reason For Referral No Information Medications Medication SIG (Take, Route, Frequency, Duration) Notes Start Date End Date Status Flonase PRN Active Problems Problem Type SNOMED Code ICD Code Onset Dates Problem Status W/U Status Risk Notes Problem Pre-surgery evaluation (817365837) Other specified pre-operative examination (V72.83) Active confirmed Problem Colon cancer screening (206634691) Colon cancer screening (V76.51) Active confirmed Plan Of Treatment Future Test Test Name Order Date COLONOSCOPY 06/05/2014 Insurance Providers Payer Name Payer Address Payer Phone Subscriber Number Group Number Insured Name Patient Relationship to Insured Coverage Start Date Coverage End Date [facility] Insurance C/O [facility] [address] [place] [address] [id number] MEJIA CISNEROS Self - patient is the insured Medical (General) History Medical History History ICD Code Denies NE,DM,CVA,Lung disease,renal dise ase
[2024-10-20 10:38] VITALS: BP 140/90
== END 2024-10-20 11:02 | disposition home or self-care (01) ==
LOC: HO.HMCH 10:07
PROVIDERS: PCP Internal Medicine; Visit Provider Internal Medicine
DX: Z00.00 Encounter for general adult medical examination without abnormal findings (principal); K80.20 Calculus of gallbladder without cholecystitis without obstruction; E66.9 Obesity, unspecified; Z68.31 Body mass index [BMI] 31.0-31.9, adult; K76.0 Fatty (change of) liver, not elsewhere classified; R73.01 Impaired fasting glucose; Z12.11 Encounter for screening for malignant neoplasm of colon; E78.00 Pure hypercholesterolemia, unspecified; L57.0 Actinic keratosis

== ENCOUNTER → 2024-10-20 10:07 | Outpatient (BNVA) | payer MEDICARE, SELFPAY | PROVIDERS: PCP Internal Medicine; Visit Provider Internal Medicine | DX: Z00.00 Encounter for general adult medical examination without abnormal findings (principal); K80.20 Calculus of gallbladder without cholecystitis without obstruction; K76.0 Fatty (change of) liver, not elsewhere classified; E66.9 Obesity, unspecified; R73.01 Impaired fasting glucose; E78.00 Pure hypercholesterolemia, unspecified; L57.0 Actinic keratosis; I10 Essential (primary) hypertension; Z68.31 Body mass index [BMI] 31.0-31.9, adult | CPT/HCPCS: 96127; 99396 ==